=== PATIENT | female | born 1965 | race Caucasian/White ===

== ENCOUNTER 2018-05-18 13:24 | Inpatient (IN) ==
--- NOTE | 2018-05-17 22:17 | Discharge Summary ---
<Marilyn Schaffer - Last Filed: 05/17/18 22:15> Orders not resulted at time of discharge: Pending orders 05/18/18 00:01 XR knee RT limited 1-2V [XR] Routine H/H [Hemoglobin and Hematocrit] [HEME] Routine Date of Encounter: 05/17/18 - Discharge Diagnosis (1) Status post total knee replacement, right Priority: Primary Status: Acute (2) Arthritis of knee, right Priority: Primary Status: Acute (3) HTN (hypertension) Priority: Secondary Status: Chronic Qualifiers: Hypertension type: essential hypertension Qualified Code(s): I10 - Essential (primary) hypertension (4) HLD (hyperlipidemia) Priority: Secondary Status: Acute Qualifiers: Hyperlipidemia type: mixed hyperlipidemia Qualified Code(s): E78.2 - Mixed hyperlipidemia (5) Hx of Guillain-[place] syndrome Status: Acute - Hospital Course Hospital course: Ms. Soni is a 53 year old female - Time Spent with Patient Total time spent providing and/or coordinating discharge services: - Discharge Medications Home Medications: Aspirin Enteric Coated [Aspirin EC] 325 mg PO BID #20 tablet. 05/17/18 [Rx] HYDROcodone/Acet 5/325 mg [Power 5-325 mg] 1 tab PO Q6H PRN 7 Days #28 tab 05/17 [Rx] Atorvastatin Calcium [Lipitor] 20 mg PO HS 05/18/18 [History] Cyclobenzaprine [Flexeril] 10 mg PO TID 05/18/18 [History] Folic Acid 1 mg PO DAILY 05/18/18 [History] Gabapentin [Neurontin] 900 mg PO TID 05/18/18 [History] HYDROcodone/Acet 5/325 mg [Power 5-325 mg] 1 tab PO Q6H PRN 05/18/18 [History] Losartan Potassium [Cozaar] 50 mg PO DAILY 05/18/18 [History] Mirtazapine [Remeron] 15 mg PO HS 05/18/18 [History] Venlafaxine HCl [Venlafaxine HCl ER] 225 mg PO DAILY 05/18/18 [History] hydrOXYzine HCl [Hydroxyzine HCl] 25 mg PO Q6H PRN 05/18/18 [History] Cyanocobalamin (Vitamin B-12) [Vitamin B12] 1,000 mcg PO DAILY 05/19/18 [History ] Multivitamin [One Daily Essential] 1 tab PO DAILY 05/19/18 [History] Allergies/Adverse Reactions: 3 Allergy/AdvReac Type Severity Reaction Status Date / Time Erythromycin Base AdvReac Rash Verified 05/18/18 14:42 Hydromorphone AdvReac Nausea Verified 05/18/18 14:42 menthol AdvReac Rash Verified 05/18/18 14:23 Oxycodone AdvReac Rash Verified 05/18/18 14:23 Penicillins AdvReac Rash Verified 05/18/18 14:42 Primary care physician: PCP NONE - Patient Status Disposition: Transfer SNF Condition: Good - Discharge Instructions Follow Up With: Marilyn Schaffer PAC [Physician Egg Breaker] - 05/28/18 9:15 am NONE,PCP [Primary Care Provider] - Myron Glover [Family Provider] - Additional Instructions: Discharge Instructions: Total Knee Replacement Please call [facility] ([phone]), your Primary Care Physician, or report to the Emergency Room if you have any of the following symptoms: Nausea, vomiting, fever greater that 101.5, swelling, chest pain, shortness of breath, increased pain/redness/drainage/odor for your incision site, numbness/ tingling, or any other concerning symptoms. ACTIVITY:Weight-bearing as tolerated. You may progress off support (crutches or walker) as tolerated. Incentive Spirometer 10 times an hour. MEDICATIONS: Upon discharge resume your home medications. Take all the medications as prescribed. Take a stool softener if taking narcotic pain medications. Stool softeners are only effective if you drink enough fluids. Drink 6-8 glass of water or fluids a day, unless this is not allowed for another health problem. Despite using stool softeners, if you haven't had a bowel movement in 3 days, please switch to a gentle laxative. Gentle laxatives are sold over the counter. You should have a bowel movement within 24 hours, if not call the office. You will be discharged from the hospital with a prescription for pain medication. You are encouraged to decrease the use of narcotic pain medication as tolerated. Should you require a refill, please call the office. [facility] prescribes narcotic pain medication for only 4-6 weeks after surgery. If you require pain medication beyond this time period, you may be referred to your Primary Care Physician or to the Pain Clinic for further evaluation. Plan ahead for refills on pain medication as many narcotics either need to be picked up at the office or mailed. It is best to call 48-72 hours in advance of needing a prescription refill so you don't run out of medication. To help control the post-operative pain, you may take NSAIDs (Aleve,Advil, Motrin, Ibuprofen, Naprosyn) or Tylenol as prescribed on the bottle in addition to the pain medication. ANTICOAGULATION (blood thinners): Continue your Aspirin, Lovenox or Coumadin as prescribed to help prevent a blood clot in the leg or in the lungs. As long as your incision remains dry and you tolerate the NSAIDs (Aleve, Advil, Motrin, ibuprofen, naprosyn), it is OK to use the NSAIDS while you are taking your anticoagulation medication. Should your incision start to drain, stop the NSAID and contact our office. Common symptoms of blood clot in the legs include: localized pain, swelling, calf tenderness, redness or discoloration of the skin. Blood clot in the lung symptoms include: shortness of breath, rapid pulse, sweating, and chest pain that worsens with deep breathing, coughing up blood, lightheadedness, feelings of anxiety. If you experience any of these symptoms notify your physician immediately, go to the emergency room, or if having trouble breathing, call 911. WOUND CARE: Leave the dressing on for 7 to 10days. You may change the dressing if it becomes saturated greater than 50%. Do not get the dressing wet at anytime. Wash your hands with antibacterial soap, rinse and dry prior to any wound care. If you have anuel the visiting nurse or rehab facility can remove the stapes 10-14 days after surgery and place steri-strips across the wound. Leave the steri-strips in place until they fall off on their won. You may let water from the shower run on top of the steri-strips. If you do not have a visiting nurse or rehab facility, you will need to return to the office at 10-14 days for the anuel to be removed. If you have itching or redness around the dressing call the office. FOLLOW-UP: Please follow up with your surgeon in the orthopedic clinic in 4 weeks from the day of surgery. If you have anuel that need to be removed, you will need to come back to the office in 10-14 days from the day of surgery. <Domingo Love - Last Filed: 05/18/18 14:03> Orders not resulted at time of discharge: Pending orders 05/18/18 00:01 XR knee RT limited 1-2V [XR] Routine H/H [Hemoglobin and Hematocrit] [HEME] Routine 05/18/18 13:29 US anesthesia pain block [US] Routine Date of Encounter: 05/18/18 - Discharge Diagnosis (1) Morbid obesity with BMI of 45.0-49.9, adult Priority: Secondary Status: Chronic (2) Arthritis of knee, right Priority: Primary Status: Chronic (3) HLD (hyperlipidemia) Priority: Secondary Status: Chronic Qualifiers: Hyperlipidemia type: mixed hyperlipidemia Qualified Code(s): E78.2 - Mixed hyperlipidemia (4) Hx of Guillain-[place] syndrome Priority: Secondary Status: Resolved (5) Status post total knee replacement, right Priority: Primary Status: Acute (6) HTN (hypertension) Priority: Secondary Status: Chronic Qualifiers: Hypertension type: essential hypertension Qualified Code(s): I10 - Essential (primary) hypertension - Hospital Course Hospital course: Ms. Soni is a 53 year old female - Time Spent with Patient Total time spent providing and/or coordinating discharge services: Primary care physician: PCP NONE <Rachell Pina - Last Filed: 05/21/18 18:42> Orders not resulted at time of discharge: Pending orders 05/18/18 13:29 US anesthesia pain block [US] Routine Date of Encounter: 05/21/18 Time of Encounter: 12:25 - Discharge Diagnosis (1) Status post total knee replacement, right Priority: Primary Status: Acute (2) Morbid obesity with BMI of 45.0-49.9, adult Priority: Secondary Status: Chronic (3) Arthritis of knee, right Priority: Primary Status: Chronic (4) HLD (hyperlipidemia) Priority: Secondary Status: Chronic Qualifiers: Hyperlipidemia type: mixed hyperlipidemia Qualified Code(s): E78.2 - Mixed hyperlipidemia (5) HTN (hypertension) Priority: Secondary Status: Chronic Qualifiers: Hypertension type: essential hypertension Qualified Code(s): I10 - Essential (primary) hypertension (6) Hx of Guillain-[place] syndrome Priority: Secondary Status: Resolved - Hospital Course Hospital course: Ms. Soni is a 53 year old female s/p Right robotic-assisted Total knee replacement 05/18/18 with history of HTN, HLD, obesity. She had uneventful hospital admission. Participated in therapy. Stable for discharge. Patient seen at bedside by Dr. Love this morning. She was in shower at time of midday rounds. Afebrile, vital signs stable. dressings c/d/i with no visible drainage or erythema. no calf tenderness to palpation. good dorsiflexion of foot. grossly NV intact. Labs reviewed. H/H 10.6/32.1- stable, asymptomatic Pain control: adequate Participating in PT. All questions and concerns addressed. Educated on use of incentive spirometer. Encouraged ambulation and proper hydration. Patient educated on post-operative restrictions and post-operative care. Assessment and plan: Continue with postoperative care Discharge plan: ECF, [facility] today - Time Spent with Patient Total time spent providing and/or coordinating discharge services: Date of admission: 05/18/18 18:41 Primary care physician: PCP NONE Consults: 05/18/18 19:23 Consult to Occupational Therapy [CONS] Routine Comment: Evaluate, develop and implement POC Reason for Consult: post knee surgery Does patient have active BEDREST order?: No Is patient medically & hemodynamically stable?: Yes Consult to Orthopedic Navigator [CONS] [CONS] Routine Consult to Physical Therapy [CONS] Routine Comment: Evaluate, develop and impliment POC Reason for Consult: post knee surgery Does patient have active BEDREST order?: No Is patient medically & hemodynamically stable?: Yes Consult to Wood Form Builder [CONS] Routine Reason for SW Consult: post op joint replacement RT Post Op Consult [CONS] Routine Discharging clinician: Domingo Love Anticipated date of discharge: 05/21/18 Labs on day of discharge: Labs from last 24 hours 05/21/18 05/21/18 12:12 12:12 WBC 8.5 RBC 3.54 L Hgb 10.6 L Hct 32.1 L MCV 90.7 MCH 29.9 MCHC 33.0 RDW 13.2 Plt Count 204 MPV 9.9 Immature Gran % 0.2 Seg Neutrophils % 61.9 Lymphocytes % 23.2 Monocytes % 11.6 Eosinophils % 2.4 Basophils % 0.7 Neutrophils # 5.3 Lymphocytes # 2.0 Monocytes # 1.0 Eosinophils # 0.2 Basophils # 0.1 Sodium 139 Potassium 3.5 Chloride 104 Carbon Dioxide 31 H BUN 19 Creatinine 1.01 Est GFR ( Amer) > 60 Est GFR (Non-Af Amer) 57 L BUN/Creatinine Ratio 19 Glucose 91 Calculated Osmolality 290 Calcium 9.3 - Impressions ITS Impressions Knee X-Ray 05/18/18 00:01 IMPRESSION: Status post right knee arthroplasty without acute postoperative complication. D/ / 05/19/2018 08:43:07 Chriss Funez MD / sebas Interpreting Provider: Chriss Funez MD - Patient Status Functional capacity at discharge: uses cane/walker Overall status at discharge: patient is back to baseline - Diet and Activity Activity: as per physical therapy Diet: advance to your usual diet
[2018-05-18] MEDS ORDERED: *HR* Propofol 200 MG/20 ML VIAL IVP ONE (13:27)
[2018-05-18] MEDS ORDERED: Famotidine 20 MG/2 ML VIAL IVP ONE (13:27)
[2018-05-18] MEDS ORDERED: *HR* FentaNYL (PF) 100 MCG/2 ML VIAL ONE (13:27)
[2018-05-18] MEDS ORDERED: *HR* Midazolam HCl 2 MG/2 ML VIAL ONE (13:27)
[2018-05-18] MEDS ORDERED: Acetaminophen IV 1,000 MG/100 ML INFUS..BTL IVPB ONE (13:28)
[2018-05-18] MEDS ORDERED: Celecoxib 100 MG CAPSULE PO ONE (13:29)
[2018-05-18] MEDS ORDERED: Pregabalin 75 MG CAPSULE PO ONE (13:29)
[2018-05-18] MEDS ORDERED: Ringers Solution, Lactated 1,000 ML IVC SCH ×3 (13:30→19:23)
[2018-05-18] MEDS ORDERED: Lidocaine -MPF 2% 2 ML VIAL ONE (13:32)
[2018-05-18] MEDS ORDERED: Dexamethasone 4 MG/ML VIAL ONE (13:32)
[2018-05-18] MEDS ORDERED: Ondansetron 4 MG/2 ML VIAL ONE (13:32)
[2018-05-18] MEDS ORDERED: Albuterol 2.5 MG/3 ML NEBULIZER IH ONE (13:37)
[2018-05-18] MEDS ORDERED: Clindamycin 900 MG/50 ML 900 MG/50 ML IV.SOLN IVPB ONE (13:37)
[2018-05-18] MEDS ORDERED: *HR* PHENYLEPHRINE 1,000 MCG/10 ML SYRINGE IVP ONE (13:49)
--- NOTE | 2018-05-18 13:51 | History & Physical Report ---
Date of Encounter: 05/18/18 Time of Encounter: 13:50 24 Hour HP Update - Instructions Instructions: If the History and Physical is less than 30 days old and was completed prior to A.M. admission and or procedure and has NOT been updated on calendar day of procedure please complete this update prior to performing procedure. - Update Patient reports changes in Medical Condition: No Changes in examination, assessment, or condition: No Changes in Medication: No Preop tests/diagnostics Reviewed: Yes Surgery Remains Indicated: Yes Consent for Planned Operative Procedure(s) Verified: Yes - Pre-Operative Checklist Preoperative Checklist Indicated: No Prophylactic Antibiotic Ordered: Yes Is VTE Prophylaxis Indicated?: Yes
--- NOTE | 2018-05-18 14:00 | Anesthesia Evaluation PreOp ---
Date of Encounter: 05/18/18 Time of Encounter: 14:00 - Past History Planned Operation: Rt TKA Cardiac History: HTN, Hyperlipidemia Pulmonary History: Smoker RETAIL CLIENT SOLUTIONS CONSULTANT History: Other (Chronic Back Pain, GB Syndrome recovered) Other Medical History: Other ([place]) Anesthesia History: No Prior Anesthetic Complications : No Alcohol Use: none Drug use: none Medications and Allergies predniSONE [PredniSONE] 20 mg PO DAILY #30 tablet 02/01/18 [Rx] Aspirin Enteric Coated [Aspirin EC] 325 mg PO BID #20 tablet. 05/17/18 [Rx] HYDROcodone/Acet 5/325 mg [[place] 5-325 mg] 1 tab PO Q6H PRN 7 Days #28 tab 05/17 [Rx] 3 Allergy/AdvReac Type Severity Reaction Status Date / Time Erythromycin Base AdvReac Rash Verified 05/06/18 14:49 Hydromorphone AdvReac Nausea Verified 05/06/18 14:49 menthol AdvReac Rash Verified 05/06/18 14:49 Oxycodone AdvReac Rash Verified 05/06/18 14:49 Penicillins AdvReac Rash Verified 05/06/18 14:49 - Meds/Allergy Pre-op Review Medications Reviewed: Yes Allergies Reviewed: Yes Beta Blockers on Current Med List: No Anesthesia Results - Labs Laboratory Tests 05/06/18 05/06/18 14:17 14:17 Hgb 14.3 Hct 43.7 Plt Count 204 Sodium 141 Potassium 4.0 BUN 13 Creatinine 0.86 Anesthesia Exam O2 Sat Height 1.75 m Height 1.75 m Height 1.75 m Weight 138.346 kg Weight 138.346 kg Weight 138.346 kg O2 Sat by Pulse Oximetry 96 O2 Sat by Pulse Oximetry 96 Vital Signs Temp Pulse Resp BP Pulse Ox 98.8 F 73 18 187/92 96 05/18/18 13:35 05/18/18 13:35 05/18/18 13:35 05/18/18 13:35 05/18/18 13:35 Height: 5'8 Weight: 300 lbs NPO (# of Hours): MN Pain Scale: 0 - HEENT Pupil (Motor): Pupils equal, EOMI Mallampati: II Teeth: Normal Oral Opening: Greater than 3 - RETAIL CLIENT SOLUTIONS CONSULTANT LOC: Oriented RETAIL [employer]IENT SOLUTIONS CONSULTANT Motor: Normal RUE, Normal LUE, Normal RLE, Normal LLE, Normal Face RETAIL [employer]IENT SOLUTIONS CONSULTANT Sensory: Normal: RUE, LUE, RLE, Face, Deficit: LLE (paresthesia) - Cardiac Rhythm: Regular Murmur: None JVD: No Carotid Bruit: No - Pulmonary Breath Sounds: bilateral Clear Respiratory Effort: Symmetrical Anesthesia Assess/Plan ASA Score: 3 (MO HTN Tobacco) Modified Austin Scale for Level of Consciousness: Cooperative, oriented, and tranquil Anesthetic Plan: General, Regional Monitoring Plan: Standard Monitors Recovery Plan: PACU (Discussed GA and RA, agrees to proceed)
[2018-05-18] MEDS ORDERED: ROPIVACAINE HCL/PF 0.5% 30 ML VIAL ONE (14:10)
[2018-05-18] MEDS ORDERED: Bupivacaine-MPF 0.25% 10 ML VIAL ONE (14:10)
[2018-05-18] MEDS ORDERED: Tetracaine/PF 20 MG/2 ML AMPUL ONE (14:10)
[2018-05-18] MEDS ORDERED: Scopolamine Patch 1.5 MG PATCH.TD72 ONE (14:22)
[2018-05-18] MEDS ORDERED: Ethanol\\Acetic Acid\\Na Ace\\Ben 1,000 ML IRRIG.SOLN IR ONE (14:32)
--- NOTE | 2018-05-18 15:00 | Anesthesia Procedures ---
Date of Encounter: 05/18/18 Time of Encounter: 14:58 Procedures: Anesthesia - Nerve Block Procedure Date: 05/18/18 Time: 14:58 Allergies/Adv Reactions: Allergies Erythromycin Base Adverse Reaction (Verified 05/18/18 14:42) Rash Hydromorphone Adverse Reaction (Verified 05/18/18 14:42) Nausea menthol Adverse Reaction (Verified 05/18/18 14:23) Rash Oxycodone Adverse Reaction (Verified 05/18/18 14:23) Rash Penicillins Adverse Reaction (Verified 05/18/18 14:42) Rash Pre-op Diagnosis: Osteoarthritis right knee Surgical Procedure: Robotic right TKA Checklist: Correct Patient Identifier, Correct procedure, History checked Correct side: Right Blood Thinner: No Monitor Applied: EKG, BP, Pulse Oximetry Supplemental Oxygen via Nasal Cannula (L/min): 2 Sedation: Versed (mg): 2 Sedation: Fentanyl (mcg): 100 Indication: Post Op Analgesia Pre-op Neuro Deficits: No Block Type: Other (Adductor canal, IPACK & ZULLY) Sterile Technique: Yes Ultrasound used: Yes Anatomy identified: Yes Visual spread of Local: Yes Neuro Stimulation: No Blood on Needle Aspiration: No Smooth Injection of Local: Yes Pain with Injection of Local: No Prep: Chlorhexadine Needle: 21 x 100 mm Stimuplex Local: Ropivacaine (30ml 0.5% ropivacaine with 8mg decadron adductor canal) Volume (cc): 30ml 0.5% & decadron 8mg Number of Attempts: 1 Complications: None/effective block Vitals: Vital Signs/O2 Sat/Glucose, Most Recent Temp Pulse Resp BP Pulse Ox 98.8 F 74 17 169/74 98 05/18/18 13:48 05/18/18 14:28 05/18/18 14:28 05/18/18 14:28 05/18/18 14:28
[2018-05-18] MEDS ORDERED: Esmolol 100 MG/10 ML VIAL IVP ONE ×2 (15:05→15:09)
[2018-05-18] MEDS ORDERED: EPHEDrine 50 MG/ML VIAL ONE (15:14)
[2018-05-18] MEDS ORDERED: Ondansetron 4 MG/2 ML VIAL IVP ONE (15:19)
--- NOTE | 2018-05-18 15:50 | Physician Discharge Referral ---
<Marilyn Schaffer L - Last Filed: 05/18/18 15:49> ExtendedCare Referral Info Transfer To: [facility] Provider in Charge: Provider in Charge after Transfer: PCP Institutional Level of Care: Skilled - Diagnosis (1) Status post total knee replacement, right Priority: Primary Status: Acute (2) Arthritis of knee, right Priority: Primary Status: Chronic (3) HTN (hypertension) Priority: Secondary Status: Chronic (4) HLD (hyperlipidemia) Priority: Secondary Status: Chronic (5) Hx of Guillain-[place] syndrome Priority: Secondary Status: Resolved Expected Duration of Placement: < 30 days Prognosis: Good Aware of Diagnosis: Patient Aware of Prognosis: Patient - Transfer Medications Home Medications: Aspirin Enteric Coated [Aspirin EC] 325 mg PO BID #20 tablet. 05/17/18 [Rx] HYDROcodone/Acet 5/325 mg [[place] 5-325 mg] 1 tab PO Q6H PRN 7 Days #28 tab 05/17 [Rx] Atorvastatin Calcium [Lipitor] 20 mg PO HS 05/18/18 [History] Cyclobenzaprine [Flexeril] 10 mg PO TID 05/18/18 [History] Folic Acid 1 mg PO DAILY 05/18/18 [History] Gabapentin [Neurontin] 900 mg PO TID 05/18/18 [History] HYDROcodone/Acet 5/325 mg [[place] 5-325 mg] 1 tab PO Q6H PRN 05/18/18 [History] Losartan Potassium [Cozaar] 50 mg PO DAILY 05/18/18 [History] Mirtazapine [Remeron] 15 mg PO HS 05/18/18 [History] Venlafaxine HCl [Venlafaxine HCl ER] 225 mg PO DAILY 05/18/18 [History] hydrOXYzine HCl [Hydroxyzine HCl] 25 mg PO Q6H PRN 05/18/18 [History] Cyanocobalamin (Vitamin B-12) [Vitamin B12] 1,000 mcg PO DAILY 05/19/18 [History ] Multivitamin [One Daily Essential] 1 tab PO DAILY 05/19/18 [History] Allergies/Adverse Reactions: 3 Allergy/AdvReac Type Severity Reaction Status Date / Time Erythromycin Base AdvReac Rash Verified 05/18/18 14:42 Hydromorphone AdvReac Nausea Verified 05/18/18 14:42 menthol AdvReac Rash Verified 05/18/18 14:23 Oxycodone AdvReac Rash Verified 05/18/18 14:23 Penicillins AdvReac Rash Verified 05/18/18 14:42 - Respiratory Orders Smoking Cessation: Smoking cessation has been advised. For more information, call the [employer] Line at 3-127-DDXG-NOW. - Mobility Orders Chair, Ambulate - Rehabiliation Orders Rehab Potential: Good Rehab Orders: ROM Exercises, Evaluation for Physical Therapy, Evaluation for Occupational Therapy - Treatments Skin tear care topically daily PRN per policy, May check for fecal impaction rectally daily PRN, Fleet enema rectally every other day PRN cleansing purposes List/Other: Opsite dressing, leave intact until first post-operative visit. If dressing becomes >50% saturated, contact office, remove dressing and place appropriate dressing in its place. Do not allow for dressing to get wet. Zipline in place, plan to remove at post-operative day #14-16. Total Joint Precautions x 6 weeks Apply cold therapy wrap 3-6x/day for 20 minutes at a time. Encourage ambulation throughout the day Use Incentive spirometer 10x/hour. Elevate affected extremity above heart as tolerated. Brace: Wear knee immobilizer at night until first post-operative appt. CERTIFICATION: I certify that the transfer of the above named patient to an Extended Care Facility is necessary for the continuing treatment of the diagnosis listed. The above information is true and accurate reflection of patient's current condition. Confidential - Redisclosure prohibited without a patient's written consent. <Domingo Love - Last Filed: 05/21/18 08:42> - Diagnosis (1) Morbid obesity with BMI of 45.0-49.9, adult Status: Chronic (2) Arthritis of knee, right Status: Chronic (3) HLD (hyperlipidemia) Status: Chronic (4) Hx of Guillain-[place] syndrome Status: Resolved (5) Status post total knee replacement, right Status: Acute (6) HTN (hypertension) Status: Chronic - Respiratory Orders Smoking Cessation: Smoking cessation has been advised. For more information, call the [employer] Line at 9-216-XIPZ-NOW. CERTIFICATION: I certify that the transfer of the above named patient to an Extended Care Facility is necessary for the continuing treatment of the diagnosis listed. The above information is true and accurate reflection of patient's current condition. Confidential - Redisclosure prohibited without a patient's written consent.
--- NOTE | 2018-05-18 16:03 | Orthopedic Operative Note ---
Date of procedure: 05/18/18 Pre-op diagnosis: Right knee arthritis Post-op diagnosis: same Procedure: Procedure: Right robotic-assisted Total knee replacement Estimated blood loss: 200 cc Hardware: Metal and polyethylene replacement. [place] Femur: 5 Tibia: 5 TS insert: 11 Patella: 39 Exam Under anesthesia: 10 degree flexion contracture 7 degree varus as calculated by the robot full flexion and no instability Procedural Notes: Grade 4 arthritic changes all 3 compartments. Operative procedure: The patient was brought to the operating room and placed on the operating room table. After general anesthesia was administered the operative knee was examined. Findings were noted in the exam under anesthesia. The operative extremity was prepped and draped in sterile surgical fashion. The patient received IV antibiotics prior to skin incision. A standard midline incision was made centered over the patella. The incision was made through the skin and subcutaneous tissue. A medial parapatellar tendon approach was performed. Care was taken to preserve tissue along the medial aspect of the patella. And to protect the patella tendon. The deep MCL was released off the medial tibia. The infra patella fat pad was excised. The patella was everted and cut was made at the level of the insertion of the quadriceps and patella tendon. The patella was sized to a 39 the guide was seated and the lug holes are drilled. Knee was brought into flexion. Patient noted to have grade 4 arthritic changes all 3 compartments. Steinmann pins were placed in the tibia and the femur for the tibial and femoral arrays respectively. Checkpoints were also placed in the tibia and the femur for calculation purposes. The knee including the femur and the tibial registered. Osteophytes, ACL and PCL were excised at this point. Extension and flexion were assessed with a valgus stress components were adjusted on the computer to balance the knee. Femoral cuts were made first with robotic assistance, these included the anterior cut posterior cuts chamfer cuts. Tibial cut was then performed with robotic assistance as well. Bone fragments were removed, as well as the medial and lateral meniscus. The size 5 femoral guide was seated box cut was made lug holes are drilled. The size 5 tibial tray was seated and prepared with the fin cutter. Trial reduction with the 11 TS Maxine revealed extension of 0 degree 4 degree varus full flexion. No varus valgus instability. Trial reduction revealed excellent patella tracking. All trial components were removed all bony surfaces were irrigated. The Tibia was seated followed by the femur, The selected Maxine size was seated and secured patella. Patient had similar findings for motion and stability. The knee was closed by the PA. The knee was then irrigated out with 2 L of pulse irrigation. The extensor mechanism was closed with #2 FiberWire suture and #2 PDS suture. The subcutaneous tissue was then irrigated and closed deep with #1 PDS suture superficially with 0 PDS suture and skin was closed with zip tie The patient was then placed in a sterile dressing and a postoperative brace extubated and transferred to recovery room in stable condition. Anesthesia: GETA Surgeon: Domingo Love Was there an inventory assistant present: No Estimated blood loss (cc): 200 Condition: stable Disposition: PACU
[2018-05-18] MEDS: *HR* HYDROmorphone (PF) 1 MG/ML SYRINGE IVP PRN ×2 (17:02→17:10)
--- NOTE | 2018-05-18 17:45 | Anesthesia Evaluation Post Op ---
Date of Encounter: 05/18/18 Time of Encounter: 17:44 - Vital Signs Vital Signs: Vital Signs/O2 Sat, Most Current Temp Pulse Resp BP Pulse Ox 99.0 F 72 14 156/89 99 05/18/18 17:31 05/18/18 17:31 05/18/18 17:31 05/18/18 17:31 05/18/18 17:31 - Lungs Lungs: Clear Ascult./Percussion - Airway Airway: Non-obstructed - Cardiovascular Regular Rate - Mental Status Mental Status: Alert & Oriented, Answers Appropriately - Pain Pain Scale: 5 Pain Scale used: Numeric (1 - 10) - Nausea Vomiting Nausea Vomiting: Not Present - Hydration Hydration: Ice chips, Has not voided - Discharge PostOp Status: Transfer Patient to floor
[2018-05-18 17:59] LABS: Hemoglobin 14.3 g/dL (11.5-15.4)
[2018-05-18] MEDS ORDERED: Temazepam 15 MG CAPSULE PO PRN (19:23)
[2018-05-18] MEDS ORDERED: Ondansetron 4 MG/2 ML VIAL IVP PRN (19:23)
[2018-05-18] MEDS ORDERED: *HR* HYDROcodone/Acet 10/325 mg TABLET PO PRN (19:23)
[2018-05-18] MEDS ORDERED: traMADol 50 MG TABLET PO PRN (19:23)
[2018-05-18] MEDS ORDERED: Sennosides 8.6 MG TABLET PO PRN (19:23)
[2018-05-18] MEDS ORDERED: MOM Conc 10 ML UD.LIQ PO PRN (19:23)
[2018-05-18] MEDS ORDERED: Naloxone 0.4 MG/ML INJ IVP PRN (19:23)
[2018-05-18] MEDS: Clindamycin 900 MG/50 ML 900 MG/50 ML IV.SOLN IVPB SCH (20:10)
[2018-05-18] MEDS: Nicotine 21 MG PATCH.TD24 TD SCH (23:18)
[2018-05-18] MEDS: Gabapentin 300 MG CAPSULE PO SCH (23:18)
[2018-05-18] MEDS: Mirtazapine 15 MG TABLET PO SCH (23:22)
[2018-05-19 02:50] LABS: Hematocrit 36.6 % (35.3-44.9)
[2018-05-19 02:52] LABS: Hemoglobin 12.3 g/dL (11.5-15.4)
[2018-05-19 03:13] LABS: BUN/Creatinine Ratio 19 (6-26); Blood Urea Nitrogen 18 mg/dL (6-20); Carbon Dioxide 25 mEq/L (23-29); Chloride 106 mEq/L (98-107); Glucose 147 mg/dL (70-105); Osmolality,Calculated 291 (280-300); Sodium 138 mEq/L (136-145); eGFR For Non-African Americans > 60 (> 60)
[2018-05-19] MEDS: Clindamycin 900 MG/50 ML 900 MG/50 ML IV.SOLN IVPB SCH (04:21)
--- NOTE | 2018-05-19 07:04 | Orthopedics Progress Note ---
Date of Encounter: 05/19/18 Time of Encounter: 07:04 - Assessment and Plan (1) Morbid obesity with BMI of 45.0-49.9, adult Current Visit: Yes Status: Chronic (2) Arthritis of knee, right Current Visit: No Status: Chronic (3) HLD (hyperlipidemia) Current Visit: No Status: Chronic Qualifiers: Hyperlipidemia type: mixed hyperlipidemia Qualified Code(s): E78.2 - Mixed hyperlipidemia (4) Hx of Guillain-[place] syndrome Current Visit: No Status: Resolved (5) Status post total knee replacement, right Current Visit: No Status: Acute (6) HTN (hypertension) Current Visit: No Status: Chronic Qualifiers: Hypertension type: essential hypertension Qualified Code(s): I10 - Essential (primary) hypertension Subjective Interval history: Patient was seen this morning doing well without complaints. Afebrile vital signs stable. Operative extremity: Neurovascularly intact Dressing clean dry and intact Calves nontender Assessment and plan: Continue with postoperative care Hematocrit 36 Objective Vital signs: Vital Signs Temp Pulse Resp BP Pulse Ox 05/19/18 03:18 97.7 F 67 18 131/76 93 05/18/18 22:43 98.2 F 78 18 138/79 93 05/18/18 21:30 98.3 F 90 16 138/60 99 05/18/18 20:30 97.7 F 69 15 129/76 100 05/18/18 20:21 98 05/18/18 19:30 98.4 F 75 15 139/73 97 05/18/18 19:00 98.2 F 84 14 127/84 99 05/18/18 18:30 98.7 F 72 14 143/80 100 05/18/18 18:15 98.3 F 69 15 140/80 100 05/18/18 18:00 97.9 F 72 16 150/86 100 05/18/18 17:41 99.0 F 76 16 162/86 97 05/18/18 17:31 99.0 F 72 14 156/89 99 05/18/18 17:21 76 16 159/88 100 05/18/18 17:11 98.2 F 73 16 135/83 99 05/18/18 17:01 76 14 158/92 100 05/18/18 16:51 71 16 147/96 97 05/18/18 16:41 97.1 F L 78 16 146/89 99 05/18/18 14:28 74 17 169/74 98 05/18/18 13:48 98.8 F 73 18 187/92 96 05/18/18 13:35 98.8 F 73 18 187/92 96 Intake and Output 05/18/18 05/18/18 05/19/18 15:59 23:59 07:59 Intake Total 100 / 100 1050 / 1050 Output Total 200 / 200 Balance -100 / -100 1050 / 1050 Intake: IV Fluids 100 / 100 1050 / 1050 Lactated Ringers 1,000 ML @ 75 1000 / 1000 mls/hr IVC .[id number] SHADI Rx#: [id number] Cleocin Premix 900 MG/50 ML 900 100 / 100 50 / 50 mg In 50 ml @ 50 mls/hr IVPB Q8H SHADI Rx#:[id number] Output: Estimated Blood Loss 200 / 200 Other: # Voids 1 Weight 138.346 kg - Labs CBC & BMP: 05/19/18 02:08 05/19/18 02:08 Labs: Abnormal lab results Glucose 147 mg/dL (70-105) H 05/19/18 02:08 Consult Discharge Plan - Plan Referrals: NONE,PCP [Primary Care Provider] - Myron Glover [Family Provider] -
[2018-05-19] MEDS: Gabapentin 300 MG CAPSULE PO SCH ×3 (08:52→21:05)
[2018-05-19] MEDS: Nicotine 21 MG PATCH.TD24 TD SCH (08:53)
[2018-05-19] MEDS ORDERED: hydrOXYzine pamoate 25 MG CAPSULE PO PRN (09:17)
[2018-05-19] MEDS: Folic Acid 1 MG TABLET PO SCH (11:35)
[2018-05-19] MEDS: Cyanocobalamin (B-12) 1,000 MCG TABLET PO SCH (11:35)
[2018-05-19] MEDS: Venlafaxine XR (24 HR) 75 MG CAP.ER.24H PO SCH (11:35)
[2018-05-19] MEDS: Multivit/Ca/Min/Fe/FA 1 TAB TABLET PO SCH (11:35)
[2018-05-19] MEDS: *HR* HYDROcodone/Acet 5/325 mg TABLET PO PRN ×2 (14:38→19:47)
--- NOTE | 2018-05-19 20:55 | Event Note ---
Date of Encounter: 05/19/18 Time of Encounter: 12:35 PCR - POD#1 s/p Right robotic-assisted Total knee replacement Patient seen at bedside, without complaints. A&O x 3 Afebrile, vital signs stable. dressings c/d/i with no visible drainage or erythema. no calf tenderness to palpation. good dorsiflexion of foot. grossly NV intact. Labs reviewed. H/H 12.3/36.6 - stable, asymptomatic Pain control: adequate Participating in PT. All questions and concerns addressed. Educated on use of incentive spirometer. Encouraged ambulation and proper hydration. Patient educated on post-operative restrictions and post-operative care. Assessment and plan: Continue with postoperative care Discharge plan: ECF
[2018-05-19] MEDS: Mirtazapine 15 MG TABLET PO SCH ×2 (21:05→21:06)
[2018-05-20 01:57] LABS: Hemoglobin 11.1 g/dL (11.5-15.4)
[2018-05-20 02:10] LABS: BUN/Creatinine Ratio 22 (6-26); Blood Urea Nitrogen 21 mg/dL (6-20); Carbon Dioxide 30 mEq/L (23-29); Chloride 107 mEq/L (98-107); Glucose 118 mg/dL (70-105); Osmolality,Calculated 298 (280-300); Potassium 3.4 mEq/L (3.5-5.1); Sodium 142 mEq/L (136-145); eGFR For Non-African Americans > 60 (> 60)
[2018-05-20] MEDS: *HR* HYDROcodone/Acet 5/325 mg TABLET PO PRN ×5 (03:35→22:57)
--- NOTE | 2018-05-20 09:14 | Orthopedics Progress Note ---
Date of Encounter: 05/20/18 Time of Encounter: 09:13 - Assessment and Plan (1) Morbid obesity with BMI of 45.0-49.9, adult Current Visit: Yes Status: Chronic (2) Arthritis of knee, right Current Visit: No Status: Chronic (3) HLD (hyperlipidemia) Current Visit: No Status: Chronic Qualifiers: Hyperlipidemia type: mixed hyperlipidemia Qualified Code(s): E78.2 - Mixed hyperlipidemia (4) Hx of Guillain-[place] syndrome Current Visit: No Status: Resolved (5) Status post total knee replacement, right Current Visit: No Status: Acute (6) HTN (hypertension) Current Visit: No Status: Chronic Qualifiers: Hypertension type: essential hypertension Qualified Code(s): I10 - Essential (primary) hypertension Subjective Interval history: Patient was seen this morning doing well without complaints. Afebrile vital signs stable. Operative extremity: Neurovascularly intact Dressing clean dry and intact Calves nontender Assessment and plan: Continue with postoperative care Objective Vital signs: Vital Signs Temp Pulse Resp BP Pulse Ox 05/20/18 07:10 98.5 F 66 19 132/88 98 05/20/18 03:26 97.8 F 127/79 94 05/19/18 22:52 98.2 F 67 146/73 94 05/19/18 19:07 97.7 F 64 133/66 95 05/19/18 16:17 98.8 F 79 16 136/78 96 05/19/18 11:52 99.0 F 69 16 116/79 96 Intake and Output 05/19/18 05/20/18 05/20/18 23:59 07:59 15:59 Other: # Voids 1 1 - Labs CBC & BMP: 05/20/18 01:30 05/20/18 01:30 Labs: Abnormal lab results Hgb 11.1 g/dL (11.5-15.4) L 05/20/18 01:30 Hct 34.0 % (35.3-44.9) L 05/20/18 01:30 Potassium 3.4 mEq/L (3.5-5.1) L 05/20/18 01:30 Carbon Dioxide 30 mEq/L (23-29) H 05/20/18 01:30 BUN 21 mg/dL (6-20) H 05/20/18 01:30 Glucose 118 mg/dL (70-105) H 05/20/18 01:30 Consult Discharge Plan - Plan Referrals: NONE,PCP [Primary Care Provider] - Myron Glover [Family Provider] -
[2018-05-20] MEDS: Gabapentin 300 MG CAPSULE PO SCH ×3 (09:42→21:31)
[2018-05-20] MEDS: Multivit/Ca/Min/Fe/FA 1 TAB TABLET PO SCH (09:42)
[2018-05-20] MEDS: Venlafaxine XR (24 HR) 75 MG CAP.ER.24H PO SCH (09:42)
[2018-05-20] MEDS: Folic Acid 1 MG TABLET PO SCH (09:42)
[2018-05-20] MEDS: Cyanocobalamin (B-12) 1,000 MCG TABLET PO SCH (09:42)
[2018-05-20] MEDS: *HR* Enoxaparin 30 MG/0.3 ML SYRINGE SQ SCH ×2 (09:43→17:23)
[2018-05-20] MEDS: Nicotine 21 MG PATCH.TD24 TD SCH (09:43)
--- NOTE | 2018-05-20 17:54 | Event Note ---
Date of Encounter: 05/20/18 Time of Encounter: 12:35 PCR - POD#2 s/p Right robotic-assisted Total knee replacement Patient seen at bedside, without complaints. A&O x 3 Afebrile, vital signs stable. dressings c/d/i with no visible drainage or erythema. no calf tenderness to palpation. good dorsiflexion of foot. grossly NV intact. Labs reviewed. H/H 11.1/34.0- stable, asymptomatic Pain control: inadequate, receiving norco (oxycodone allergy) with neurotin and flexeril. will add lidoderm patch for localized pain relief Participating in PT. All questions and concerns addressed. Educated on use of incentive spirometer. Encouraged ambulation and proper hydration. Patient educated on post-operative restrictions and post-operative care. Assessment and plan: Continue with postoperative care Discharge plan: ECF, accepted Signatures [facility], pending auth
[2018-05-20] MEDS: Mirtazapine 15 MG TABLET PO SCH ×2 (21:32→21:34)
[2018-05-21] MEDS: *HR* HYDROcodone/Acet 5/325 mg TABLET PO PRN ×3 (03:14→17:56)
[2018-05-21] MEDS: *HR* Enoxaparin 30 MG/0.3 ML SYRINGE SQ SCH (05:18)
[2018-05-21] MEDS: Nicotine 21 MG PATCH.TD24 TD SCH (07:40)
[2018-05-21] MEDS: Cyanocobalamin (B-12) 1,000 MCG TABLET PO SCH (07:42)
[2018-05-21] MEDS: Venlafaxine XR (24 HR) 75 MG CAP.ER.24H PO SCH (07:42)
[2018-05-21] MEDS: Folic Acid 1 MG TABLET PO SCH (07:44)
[2018-05-21] MEDS: Gabapentin 300 MG CAPSULE PO SCH ×2 (07:44→14:58)
[2018-05-21] MEDS: Multivit/Ca/Min/Fe/FA 1 TAB TABLET PO SCH (07:44)
--- NOTE | 2018-05-21 08:42 | Orthopedics Progress Note ---
Date of Encounter: 05/21/18 Time of Encounter: 08:42 - Assessment and Plan (1) Morbid obesity with BMI of 45.0-49.9, adult Current Visit: Yes Status: Chronic (2) Arthritis of knee, right Current Visit: No Status: Chronic (3) HLD (hyperlipidemia) Current Visit: No Status: Chronic Qualifiers: Hyperlipidemia type: mixed hyperlipidemia Qualified Code(s): E78.2 - Mixed hyperlipidemia (4) Hx of Guillain-[place] syndrome Current Visit: No Status: Resolved (5) Status post total knee replacement, right Current Visit: No Status: Acute (6) HTN (hypertension) Current Visit: No Status: Chronic Qualifiers: Hypertension type: essential hypertension Qualified Code(s): I10 - Essential (primary) hypertension Subjective Interval history: Patient was seen this morning doing well without complaints. Afebrile vital signs stable. Operative extremity: Neurovascularly intact Dressing clean dry and intact Calves nontender Assessment and plan: Continue with postoperative care discharge when approved Objective Vital signs: Vital Signs Temp Pulse Resp BP Pulse Ox 05/21/18 07:08 98.4 F 82 16 115/73 98 05/21/18 04:29 98.7 F 88 17 124/78 93 05/21/18 00:45 97.8 F 85 18 129/79 91 05/20/18 21:42 94 05/20/18 19:37 98.9 F 76 17 132/79 94 05/20/18 16:17 98.6 F 80 17 116/68 96 05/20/18 11:45 98.1 F 68 18 129/78 93 Intake and Output 05/20/18 05/21/18 05/21/18 23:59 07:59 15:59 Intake Total 488 / 488 Balance 488 / 488 Intake: Oral 488 / 488 Other: Meal Dinner Percent of Meal Consumed 95% # Voids 1 1 Weight 140.1 kg Patient Weight 05/21/18 23:59 Weight 140.1 kg - Labs CBC & BMP: 05/20/18 01:30 05/20/18 01:30 Labs: Abnormal lab results Hgb 11.1 g/dL (11.5-15.4) L 05/20/18 01:30 Hct 34.0 % (35.3-44.9) L 05/20/18 01:30 Potassium 3.4 mEq/L (3.5-5.1) L 05/20/18 01:30 Carbon Dioxide 30 mEq/L (23-29) H 05/20/18 01:30 BUN 21 mg/dL (6-20) H 05/20/18 01:30 Glucose 118 mg/dL (70-105) H 05/20/18 01:30 Consult Discharge Plan - Plan Referrals: NONE,PCP [Primary Care Provider] - Myron Glover [Family Provider] -
[2018-05-21 12:34] LABS: Basophils # 0.1 K/mcL (0.0-0.2); Basophils % 0.7 %; Eosinophils # 0.2 K/mcL (0.0-0.6); Eosinophils % 2.4 %; Hematocrit 32.1 % (35.3-44.9); Hemoglobin 10.6 g/dL (11.5-15.4); Immature Granulocytes % 0.2 % (0-4); Lymphocytes % 23.2 %; Mean Corpuscular Hemoglobin 29.9 pg (28.0-33.3); Mean Corpuscular Volume 90.7 fL (83.0-100.0); Mean Platelet Volume 9.9 fL (9.4-12.4); Monocytes % 11.6 %; Neutrophils # 5.3 K/mcL (1.6-8.9); Platelet Count 204 K/mcL (140-400); Red Blood Count 3.54 M/mcL (3.82-4.97); Red Cell Distribution Width 13.2 % (11.5-14.5); Segmented Neutrophils % 61.9 %
[2018-05-21 12:56] LABS: BUN/Creatinine Ratio 19 (6-26); Blood Urea Nitrogen 19 mg/dL (6-20); Calcium 9.3 mg/dL (8.6-10.3); Carbon Dioxide 31 mEq/L (23-29); Chloride 104 mEq/L (98-107); Glucose 91 mg/dL (70-105); Osmolality,Calculated 290 (280-300); Potassium 3.5 mEq/L (3.5-5.1); Sodium 139 mEq/L (136-145); eGFR For Non-African Americans 57 (> 60)
[2018-05-21 16:18] VITALS: BP 122/77
== END 2018-05-21 19:18 | DRG 302 ==
LOC: SAMDAY 13:24 → 3NENU 18:41
PROVIDERS: ADMIT Orthopaedic Surgery; ATTEND Orthopaedic Surgery